=== PATIENT | female | born 1960 | race Caucasian/White ===

== ENCOUNTER → 2020-11-30 | Outpatient (CLI) | payer OTHER ==
[~2020-11-30] MED LIST: ASPIRIN EC81 M1 PO; BACTRIM DS TAB1 EACH PO; CLARITIN10 MG PO; GLUCOPHAGE500 MG PO; HYDROCHLOROTHIA25 M1 PO; IRON TABLET1 EACH PO; MEDROLDOSEPACK PO; PREDNISONE 5 MG5 MG PO; PRINIVIL20 MG PO; SERTRALINE HCL50 MG PO; ZANTAC 150MG T150 M1 PO
== END ==
LOC: RAD 08:13
PROVIDERS: ATTEND Neuromusculoskeletal Medicine & OMM
DX: Z13.6 Encounter for screening for cardiovascular disorders (principal); E78.00 Pure hypercholesterolemia, unspecified; I25.10 Atherosclerotic heart disease of native coronary artery without angina pectoris

== ENCOUNTER → 2020-12-26 | Outpatient (CLI) | payer OTHER | LOC: SJCVCIMAG 08:24 | PROVIDERS: ATTEND Internal Medicine | DX: I08.1 Rheumatic disorders of both mitral and tricuspid valves (principal); E78.00 Pure hypercholesterolemia, unspecified; I25.10 Atherosclerotic heart disease of native coronary artery without angina pectoris; K21.9 Gastro-esophageal reflux disease without esophagitis; E78.5 Hyperlipidemia, unspecified; I10 Essential (primary) hypertension; E66.9 Obesity, unspecified; E11.9 Type 2 diabetes mellitus without complications; R93.1 Abnormal findings on diagnostic imaging of heart and coronary circulation; F32.9 Major depressive disorder, single episode, unspecified; Z87.891 Personal history of nicotine dependence; Z79.82 Long term (current) use of aspirin; Z79.899 Other long term (current) drug therapy ==

== ENCOUNTER → 2021-06-28 | Outpatient (CLI) | payer OTHER | LOC: SJCVCIMAG 08:36 | PROVIDERS: ATTEND Internal Medicine | DX: I08.1 Rheumatic disorders of both mitral and tricuspid valves (principal); I10 Essential (primary) hypertension; E11.9 Type 2 diabetes mellitus without complications; E78.2 Mixed hyperlipidemia; K21.9 Gastro-esophageal reflux disease without esophagitis; F32.9 Major depressive disorder, single episode, unspecified; I25.10 Atherosclerotic heart disease of native coronary artery without angina pectoris; Z68.29 Body mass index [BMI] 29.0-29.9, adult; Z87.891 Personal history of nicotine dependence; Z79.82 Long term (current) use of aspirin; Z79.899 Other long term (current) drug therapy; Z79.84 Long term (current) use of oral hypoglycemic drugs ==

== ENCOUNTER 2021-08-15 06:36 | Day surgery (SDC) | payer OTHER ==
[~2021-08-15] VITALS: Ht 175.3 cm; Wt 145.1 kg
--- NOTE | ~2021-08-15 | O ---
[facility] [place] [address] OPERATIVE REPORT Name: ETTA MILLER Room #: 150-2 [facility]..#: [id number] Admission: 08/15/21 Attend Phys: Edmond Woods MD Discharge: Date of : 62 Report #: [id number] THIS REPORT FOR: cc: Smooth Joe Steven F. DO Kneidel, Matthew T. MD ~ DATE OF SERVICE: 08/15/2021 PREOPERATIVE DIAGNOSIS: Right ankle osteoarthritis. POSTOPERATIVE DIAGNOSIS: Right ankle osteoarthritis. PROCEDURE: Right ankle arthroscopic arthrodesis. SURGEON: Edmond Woods MD POLICE CLERK: None. ANESTHESIA: General. ESTIMATED BLOOD LOSS: Minimal. DRAINS: No drains. TOURNIQUET TIME: 70 minutes. DESCRIPTION OF PROCEDURE: The patient was brought to the operating room where she was placed under general anesthesia. Once under adequate general anesthesia, her right lower extremity was placed into an arthroscopic thigh support. The right lower extremity was then prepped and draped in a sterile manner. The extremity was elevated, exsanguinated, and tourniquet placed to 300 mmHg. A Guhl ankle distractor was then placed across the joint. An anteromedial and anterolateral arthroscopic portal was made in the usual fashion. Examination of the joint noted significant eburnation of the cartilage with arthritic changes throughout the joint. The joint was then prepared sequentially with a shaver to remove any soft tissue and remaining cartilage and an arthroscopic bur to get down to good bleeding subchondral bone. Once this was complete, the arthroscopic equipment was removed. The extremity was removed from the arthroscopic thigh support. Demineralized bone matrix allograft was placed into the joint through the medial portal and subsequent fixation across the joint was achieved with 3 medial screws across the tibiotalar joint. These were 7.3 mm cannulated screws placed under fluoroscopic guidance as well as a single screw coming from lateral just anterior to the fibula across the tibiotalar joint as well. Excellent fixation and alignment was achieved once complete, the wounds were then irrigated copiously and closed with barbie for the skin. The wounds were dressed with Xeroform, 4 x 4's, and a sterile soft [address] [address] OPERATIVE REPORT Name: ETTA MILLER Room #: 150-2 [facility].#: [id number] Admission: 08/15/21 Attend Phys: Edmond Woods MD Discharge: Date of : 62 Report #: [id number] compressive dressing with a short leg cast was placed. Tourniquet was let down at 70 minutes. Toes were pink and warm with good capillary refill. There were no complications from the procedure. The patient tolerated the procedure well and was to the recovery room without incident. By: [id number] Edmond Woods MD /bart
[~2021-08-15 06:36] MED LIST changes: +CRESTOR40 MG PO; -GLUCOPHAGE500 MG PO; +MELOXICAM15 MG PO; +METFORMIN HCL500 MG PO; +NEURONTIN300 MG PO; +ONE-A-DAY WOMENS PO; -SERTRALINE HCL50 MG PO; +SLOW RELEASE IRON PO; +ZOLOFT 50 MG TA50 MG PO
[2021-08-15 07:49] VITALS: BP 138/67
[2021-08-15 08:41] LABS: CALCIUM 9.2 mg/dL (8.5-10.1); CREATININE 0.9 mg/dL (0.6-1.0); POTASSIUM 4.1 mmol/L (3.5-5.1)
[2021-08-15] MEDS ORDERED: ASPIRIN EC325 M1 PO (10:56)
[2021-08-15] MEDS ORDERED: PERCOCET 7.5-31 EAC1 PO (10:56)
[2021-08-15 11:19] VITALS: BP 138/67
== END 2021-08-15 13:55 | disposition home or self-care (01) ==
LOC: OR 06:36 → TBA 06:44 → OR 10:24
PROVIDERS: ATTEND Orthopaedic Surgery Foot and Ankle Surgery
DX: M19.071 Primary osteoarthritis, right ankle and foot (principal); I10 Essential (primary) hypertension; E78.5 Hyperlipidemia, unspecified; E11.9 Type 2 diabetes mellitus without complications; Z98.890 Other specified postprocedural states; Z79.899 Other long term (current) drug therapy; Z20.822 Contact with and (suspected) exposure to COVID-19
CPT/HCPCS: 50010; 50101; 50386; 51412; 51647; 52124; 53400; 56524; 56526; 57091; 57103; 57181; 58576; 58577; 58589; 62110; 62900; 64039; 64043; 70005